=== PATIENT | male | born 1990 ===

== ENCOUNTER 2017-10-20 06:22 | Emergency (ER) | payer SELFPAY ==
[2017-10-20 06:34] VITALS: BP 115/71; PULSE 77; RESP 18; TEMP 98.1; O2SAT 99
--- NOTE | 2017-10-20 07:18 | C.PDOC ---
History Of Present Illness 27 yo male c/o cockroach in left ear since 5 am. Pt notes he was sleeping when he felt something crawl in his ear. Pt notes that while he was waiting to be seen, the cockroach fell out. Denies pain, discharge, change in hearing or bleeding from the ear. Time Seen by Provider: 10/20/17 07:06 Chief Complaint (Nursing): ENT Problem History Per: Patient History/Exam Limitations: Language Barrier (RN Gia koenig) Onset/Duration Of Symptoms: Hrs Current Symptoms Are (Timing): Better Quality (Ear): Foreign Body Past Medical History Vital Signs: Last Vital Signs Temp 98.1 F 10/20/17 06:30 Pulse 77 10/20/17 06:30 Resp 18 10/20/17 06:30 BP 115/71 10/20/17 06:30 Pulse Ox 99 10/20/17 07:43 Family History: States: Unknown Family Hx - Social History Hx Alcohol Use: No Hx Substance Use: No - Immunization History Hx Tetanus Toxoid Vaccination: No Hx Influenza Vaccination: No Hx Pneumococcal Vaccination: No Review Of Systems Except As Marked, All Systems Reviewed And Found Negative. Physical Exam - Physical Exam Appears: Well, Non-toxic, No Acute Distress Skin: Normal Color, Warm, Dry Head: Atraumatic, Normacephalic Eye(s): bilateral: Normal Inspection, EOMI Ear(s): Bilateral: Normal Nose: Normal Oral Mucosa: Moist Neck: Normal, Normal ROM, Supple Chest: Symmetrical Cardiovascular: Rhythm Regular Respiratory: Normal Breath Sounds Back: Normal Inspection Extremity: Normal ROM Neurological/Psych: Oriented x3, Normal Speech ED Course And Treatment O2 Sat by Pulse Oximetry: 99 Disposition - Disposition Referrals: Jamari Jennings MD [Staff Provider] - Disposition: HOME/ ROUTINE Disposition Time: 07:15 Condition: STABLE Additional Instructions: Vaya a delcid mdico o la clnica en 1-3 segovia sin falta, para mas evaluacin. [place] los medicamentos kamila indicado. Volver a la andrzej de emergencia en cualquier momento si los sntomas persisten o empeoran. Instructions: Removing Objects Stuck in the Ear Forms: [facility] (Serbian) Print Language: KHMER - Clinical Impression Clinical Impression: Foreign body in ear
== END 2017-10-20 07:20 | disposition home or self-care (01) ==
LOC: C.ER 06:22
DX: T16.2XXA Foreign body in left ear, initial encounter (principal); X58.XXXA Exposure to other specified factors, initial encounter; Y92.003 Bedroom of unspecified non-institutional (private) residence as the place of occurrence of the external cause

== ENCOUNTER 2018-05-25 09:43 | Emergency (ER) | payer SELFPAY ==
[2018-05-25 09:48] VITALS: BP 107/71; RESP 18; TEMP 101.2
--- NOTE | 2018-05-25 10:58 | C.PDOC ---
History Of Present Illness 28 year old male with a history of bronchitis presents to the emergency department with complaints of 3 day history of fever associated with productive cough. Patient reports 1 day history of nausea and vomiting. Patient states that he was given Azithromycin yesterday, which he took without relief of symptoms. He denies history of smoking. Time Seen by Provider: 05/25/18 10:18 Chief Complaint (Nursing): Fever History Per: Patient History/Exam Limitations: no limitations Onset/Duration Of Symptoms: Days (3) Current Symptoms Are (Timing): Still Present Associated Symptoms: Fever, Cough, Sputum, Nausea, Vomiting Past Medical History Reviewed: Historical Data, Nursing Documentation, Vital Signs Vital Signs: Last Vital Signs Temp 101.2 F H 05/25/18 09:46 Pulse 106 H 05/25/18 09:46 Resp 18 05/25/18 09:46 BP 107/71 05/25/18 09:46 Pulse Ox 97 05/25/18 09:46 - Medical History PMH: No Chronic Diseases Surgical History: No Surg Hx Family History: States: No Known Family Hx - Social History Hx Alcohol Use: No Hx Substance Use: No - Immunization History Hx Tetanus Toxoid Vaccination: No Hx Influenza Vaccination: No Hx Pneumococcal Vaccination: No Review Of Systems Except As Marked, All Systems Reviewed And Found Negative. Constitutional: Positive for: Fever Respiratory: Positive for: Cough, Sputum Gastrointestinal: Positive for: Nausea, Vomiting Physical Exam - Physical Exam Appears: Non-toxic, No Acute Distress Skin: Normal Color, Warm, Dry Head: Atraumatic, Normacephalic Eye(s): bilateral: Normal Inspection, PERRL, EOMI Ear(s): Bilateral: Normal Nose: Normal Oral Mucosa: Moist Neck: Normal, Supple Chest: Symmetrical, No Tenderness Cardiovascular: Rhythm Regular, No Murmur Respiratory: Normal Breath Sounds, No Rales, No Rhonchi, No Wheezing Gastrointestinal/Abdominal: Soft, No Tenderness Extremity: Normal ROM Neurological/Psych: Oriented x3, Normal Speech, Normal Cognition ED Course And Treatment O2 Sat by Pulse Oximetry: 97 (RA) Pulse Ox Interpretation: Normal Medical Decision Making Medical Decision Making: Plan: Motrin 600mg PO Tylenol 975mg PO Rapid Flu Swab Assessment: Flu-Like Illness Disposition Counseled Patient/Family Regarding: Studies Performed, Diagnosis, Need For Followup, Rx Given - Disposition Referrals: [facility] [Outside] Disposition: HOME/ ROUTINE Disposition Time: 11:17 Condition: STABLE Additional Instructions: follow up with medical clinic within 2 days call to make an appointment take medications as prescribed return to ER if symptoms worsens or progress stop azithromycin Prescriptions: Naproxen [Naprosyn] 500 mg PO BID PRN #16 tab PRN Reason: Pain, Moderate (4-7) Oseltamivir Phosphate [Tamiflu] 75 mg PO BID #10 capsule Instructions: Flu, Adult (DC) Forms: Gen Discharge Inst South African, [facility] (South African), Work Excuse Print Language: POLISH - Clinical Impression Clinical Impression: Influenza-like illness - Scribe Statement The provider has reviewed the documentation as recorded by the Scribe (Keshav White) Provider Attestation: All medical record entries made by the Scribe were at my direction and personally dictated by me. I have reviewed the chart and agree that the record accurately reflects my personal performance of the history, physical exam, medical decision making, and the department course for this patient. I have also personally directed, reviewed, and agree with the discharge instructions and di sposition.
[2018-05-25 11:41] VITALS: PULSE 90; O2SAT 100
== END 2018-05-25 11:40 | disposition home or self-care (01) ==
LOC: C.ER 09:43
DX: J11.1 Influenza due to unidentified influenza virus with other respiratory manifestations (principal); F17.210 Nicotine dependence, cigarettes, uncomplicated